=== PATIENT | female | born 1955 | race African-American/Black ===

== ENCOUNTER 2017-04-22 09:34 | Inpatient (IN) | payer BC ==
[~2017-04-22] VITALS: Ht 167.6 cm; Wt 99.3 kg
[2017-04-22] MEDS ORDERED: AMLO5TAB4 PO (09:45)
[2017-04-22] MEDS ORDERED: SODIUM CHLORIDE 0.9% 500 ML IV ONE (10:20)
[2017-04-22] MEDS ORDERED: AMLODIPINE 5MG TABLET PO ONE (10:30)
[2017-04-22] MEDS ORDERED: TRAMADOL 50MG TABLET PO ONE (10:30)
[2017-04-22 10:52] LABS: BASOPHILS % 0.5 % (0.0-2.0); HEMATOCRIT. 35.2 % (36.0-48.0); LYMPHOCYTES % 17.8 % (20.0-50.0); MEAN CORPUSCULAR HEMOGLOBIN 23.5 pg (28.0-32.0); MEAN PLATELET VOLUME 8.3 fl (7.4-10.4); MONOCYTES % 8.3 % (2.0-8.0); NEUTROPHILS % 72.4 % (40.0-76.0); PLATELET 244 x1000/uL (130-400); RED BLOOD CELL COUNT 4.69 mill/uL (4.2-5.4); RED CELL DISTRIBUTION WIDTH 14.9 % (11.6-14.6)
[2017-04-22 11:00] LABS: INR 1.1; PARTIAL THROMBOPLASTIN TIME 26.6 sec (23.4-31.0); PROTHROMBIN TIME 11.4 sec (9.4-11.6)
[2017-04-22 11:12] LABS: CARBON DIOXIDE 27 mEq/L (21-32); CHLORIDE 105 mEq/L (98-107); TROPONIN I < 0.02 ng/mL (0.00-0.04)
[2017-04-22 11:13] LABS: CREATINE KINASE MB FRACTION < 0.5 ng/mL (0.5-3.6)
[2017-04-22 14:05] VITALS: BP 126/72
[2017-04-22] MEDS ORDERED: ATOR20TA65 PO (15:57)
[2017-04-22] MEDS ORDERED: CLOP75TA33 PO (16:00)
[2017-04-22] MEDS ORDERED: METO25TA6 PO (16:00)
[2017-04-22] MEDS ORDERED: AMLO10TA4 PO (16:02)
[2017-04-22] MEDS ORDERED: TROS60CA3 PO (16:03)
[2017-04-22] MEDS: HYDROCODONE/ACETAMINOPHEN 5/325MG TABLET PO PRN ×2 (16:56→23:54)
[2017-04-22] MEDS ORDERED: ACET-2178 PO (17:15)
[2017-04-22] MEDS ORDERED: TROSPIUM CHLORIDE 60 MG PO SCH (18:30)
[2017-04-22] MEDS ORDERED: LORAZEPAM 2MG/ML CPJ IV NR (19:15)
[2017-04-22 20:00] VITALS: BP 114/70
[2017-04-22] MEDS ORDERED: ATORVASTATIN CALCIUM 20MG TABLET PO SCH (20:00)
[2017-04-22 23:50] VITALS: BP_SYST 112; BP_SYST 118; BP_DIAS 60; BP_DIAS 69
[2017-04-22] MEDS: SODIUM CHLORIDE 0.9% 1,000 ML IV SCH (23:55)
[2017-04-23 04:00] VITALS: BP 122/68
[2017-04-23 06:37] LABS: CLARITY URINE CLOUDY (CLEAR); COLOR URINE YELLOW (YELLOW); GLUCOSE URINE NEGATIVE (NEGATIVE); KETONES URINE NEGATIVE (NEGATIVE); LEUKOCYTE ESTERASE URINE 2+ (NEGATIVE); NITRITE URINE POSITIVE (NEGATIVE); OCCULT BLOOD URINE NEGATIVE (NEGATIVE); PH URINE 5.5 (4.5-8.0); PROTEIN URINE NEGATIVE (NEGATIVE); SPECIFIC GRAVITY URINE 1.023 (1.005-1.030); UROBILINOGEN URINE 0.2 E.U./dL (0.2-1.0)
[2017-04-23 06:57] LABS: BASOPHILS % 0.4 % (0.0-2.0); EOSINOPHILS % 2.2 % (0.0-5.0); HEMATOCRIT. 32.2 % (36.0-48.0); HEMOGLOBIN. 10.2 g/dL (12.0-16.0); LYMPHOCYTES % 31.4 % (20.0-50.0); MEAN CORPUSCULAR HEMOGLOBIN 23.8 pg (28.0-32.0); MEAN CORPUSCULAR VOLUME 75.5 fL (81.0-99.0); MEAN PLATELET VOLUME 8.3 fl (7.4-10.4); MONOCYTES % 9.4 % (2.0-8.0); NEUTROPHILS % 56.6 % (40.0-76.0); PLATELET 224 x1000/uL (130-400); RED BLOOD CELL COUNT 4.27 mill/uL (4.2-5.4); RED CELL DISTRIBUTION WIDTH 14.8 % (11.6-14.6)
[2017-04-23 07:18] LABS: *AMPHETAMINES SCREEN URINE NEGATIVE (NEGATIVE); *BARBITURATES SCREEN URINE NEGATIVE (NEGATIVE); *COCAINE SCREEN URINE NEGATIVE (NEGATIVE); CANNABINOID URINE SCREEN NEGATIVE (NEGATIVE); METHADONE URINE SCREEN NEGATIVE (NEGATIVE); OPIATES URINE SCREEN PRESUMTIVE POSITIVE (NEGATIVE); PHENCYCLIDINE URINE SCREEN NEGATIVE (NEGATIVE)
[2017-04-23 07:19] LABS: *BENZODIAZEPINES SCREEN URINE NEGATIVE (NEGATIVE)
[2017-04-23 07:45] LABS: CARBON DIOXIDE 26 mEq/L (21-32); CHLORIDE 107 mEq/L (98-107)
[2017-04-23 07:47] LABS: TOTAL IRON BINDING CAPACITY 239 ug/dL (250-450)
[2017-04-23 08:00] VITALS: BP 115/59
[2017-04-23] MEDS ORDERED: ENOXAPARIN 40MG/0.4ML SYR SUBCUT SCH (09:00)
[2017-04-23] MEDS ORDERED: CLOPIDOGREL 75MG TABLET PO SCH ×2 (09:00)
[2017-04-23] MEDS: SODIUM CHLORIDE 0.9% 1,000 ML IV SCH (10:28)
[2017-04-23] MEDS: HYDROCODONE/ACETAMINOPHEN 5/325MG TABLET PO PRN (12:45)
[2017-04-23] MEDS ORDERED: AMLODIPINE 10MG TABLET PO SCH (13:15)
[2017-04-23] MEDS ORDERED: AMLODIPINE 10MG TABLET PO PRN (13:15)
[2017-04-23] MEDS ORDERED: METOPROLOL TARTRATE 25MG TABLET PO SCH (13:15)
[2017-04-23 13:40] VITALS: BP 103/54
[2017-04-23 14:53] VITALS: BP 101/62
[2017-04-23 15:25] VITALS: BP 101/62
[2017-04-23] MEDS ORDERED: LEVOFLOXACIN 500MG PREMIX 100 ML IV SCH (17:00)
== END 2017-04-23 16:37 | disposition home or self-care (01) | DRG 89 ==
LOC: ER 10:24 → EDBEDREQ 10:30 → 8WST 11:21 → EDBEDREQ 11:29 → ENRESERV 11:32
PROVIDERS: ADMIT Internal Medicine Nephrology; ATTEND Internal Medicine Nephrology
DX: S06.0X0A Concussion without loss of consciousness, initial encounter (principal); I69.351 Hemiplegia and hemiparesis following cerebral infarction affecting right dominant side; G31.89 Other specified degenerative diseases of nervous system; S09.90XA Unspecified injury of head, initial encounter; I10 Essential (primary) hypertension; S40.012A Contusion of left shoulder, initial encounter; E78.00 Pure hypercholesterolemia, unspecified; Z79.899 Other long term (current) drug therapy; Y92.89 Other specified places as the place of occurrence of the external cause; V79.88XA Bus occupant (driver) (passenger) injured in other specified transport accidents, initial encounter; Y93.89 Activity, other specified; Y99.8 Other external cause status
CPT/HCPCS: 36415; 70450; 71010; 73030; 80048; 80053; 80305; 81001; 82553; 82728; 83540; 83550; 83735; 83880; 84484; 85025; 85610; 85730; 93005; 96360; 96361; 97162; 97166; 99285; C1893; J1650; J1956; J7030; J7040